=== PATIENT | female | born 1950 | race Hispanic/Latino ===

== ENCOUNTER → 2018-07-11 | Outpatient (CLI) | payer MEDICARE ==
[~2018-07-11] MED LIST: ALLEGRA ALLERG180 MG PO; ANASTROZOLE1 MG PO; ASPIR 8181 MG PO; ATORVASTATIN CA20 MG PO; CALCIUM CARBON500 MG PO; DOXEPIN HCL25 MG PO; METFORMIN HCL500 M2 PO
--- NOTE | 2018-07-11 09:56 | Diagnostic Imaging Report ---
PROCEDURE:HAND THREE VIEWS BILATERAL INDICATION:Hand pain times several months COMPARISON:None. FINDINGS: Right hand: no acute, displaced fracture or dislocation. Appropriate alignment between the distal radius, lunate, and capitate is maintained on the lateral radiograph. Joint spaces are well-maintained. Soft tissues are unremarkable. Contour irregularity along the subungual tuft of the third distal phalanx may relate to prior trauma. Left hand: No acute, displaced fracture or dislocation. Appropriate alignment between the distal radius, lunate, and capitate is maintained on the lateral radiograph. Joint spaces are well-maintained. Soft tissues are unremarkable. CONCLUSION: No acute osseous abnormalities. Dictated by: Casey Mena M.D. on 07/11/2018 at 10:06 Electronically approved by: Casey Mena M.D. on 07/11/2018 at 10:06
== END ==
LOC: RAD 09:08
PROVIDERS: ATTEND Internal Medicine Rheumatology
DX: M25.542 Pain in joints of left hand (principal); M25.541 Pain in joints of right hand; M13.842 Other specified arthritis, left hand; M13.841 Other specified arthritis, right hand

== ENCOUNTER → 2018-09-26 | Outpatient (CLI) | payer OTHER ==
--- NOTE | 2018-09-26 16:06 | Diagnostic Imaging Report ---
EXAM: BONE MINERAL DENSITY HISTORY: Bone mineralization evaluation COMPARISON: None DISCUSSION: Evaluation of the left hip and lumbar spine was performed utilizing DEXA Hologic bone densitometer. The study is technically adequate. Left hip femoral neck bone mineral density: 0.62 g/cm2, T-score is -2.1, Z-score is -0.6. Left hip total bone mineral density: 0.78 g/cm2, T-score is -1.3, Z-score is -0.2. Bone mineralization increased by 4.5%. Lumbar spine total bone mineral density: 0.79 gm/cm2, T-score is -2.3, Z-score is -0.4. Bone mineralization increased by 2%. Impression: Bone mineralization by WHO Classification is low bone mass/osteopenia, the fracture risk is increased. Signed by: Dr. Anthony Ball M.D. on 09/26/2018 4:02 PM
== END ==
LOC: MAMMO 09:33
PROVIDERS: ATTEND Family Medicine
DX: M81.0 Age-related osteoporosis without current pathological fracture (principal)
CPT/HCPCS: 77080

== ENCOUNTER → 2020-12-07 | Outpatient (CLI) | payer MEDICARE | LOC: DX 09:35 | PROVIDERS: ATTEND Family Medicine | DX: Z13.820 Encounter for screening for osteoporosis (principal) | CPT/HCPCS: 77080 ==

== ENCOUNTER → 2021-09-19 | Day surgery (SDC) | payer MEDICARE ==
[2021-09-16 08:34] LABS: BASOPHILS % 0.3 % (0.0-1.0); EOSINOPHILS # (AUTO) 0.3 (0.0-0.4); EOSINOPHILS % 3.4 % (0.0-6.0); HEMATOCRIT 41.8 % (34.2-44.1); HEMOGLOBIN 13.1 g/dL (12.0-16.0); LYMPHOCYTES # (AUTO) 2.6 (1.0-3.2); LYMPHOCYTES % 33.6 % (18.0-39.1); MEAN CORPUSCULAR HEMOGLOBIN 27.8 pg (28-32); MEAN CORPUSCULAR HGB CONC 31.3 g/dL (31-35); MEAN CORPUSCULAR VOLUME 88.6 fL (81-99); MONOCYTES # (AUTO) 0.6 (0.2-0.8); MONOCYTES % 7.9 % (4.4-11.3); NEUTROPHILS # (AUTO) 4.2 (2.1-6.9); NEUTROPHILS % 54.5 % (38.7-80.0); PLATELET COUNT 247 x10e3/uL (140-360); RED BLOOD COUNT 4.72 x10e6/uL (3.6-5.1); RED CELL DISTRIBUTION WIDTH 13.2 % (11.7-14.4)
[~2021-09-19] MED LIST changes: +FENTANYL CITRATE/PF 100MCG/2 ML INJ ONE; +LIDOCAINE HCL 2% LOCAL INJ 5 ML SDV VIAL INJ ONE; +METOCLOPRAMIDE HCL 10 MG/2ML VIAL ONE; +MIDAZOLAM HCL 2 MG/2 ML VIAL ONE; +ONDANSETRON HCL INJ 2MG/ML 2ML 2 MG/ML VIAL ONE; +POVIDONE IODINE 0.05% 0.05 % ML PO ONE; +PRECOSE25 MG PO; +PROPOFOL IV EMULSION 10 MG/ML 20 ML VIAL ONE
[2021-09-19 12:06] VITALS: BP 151/93
== END | disposition home or self-care (01) ==
LOC: OR 08:23
PROVIDERS: ATTEND Internal Medicine Gastroenterology
DX: K59.09 Other constipation (principal); K63.5 Polyp of colon; K62.5 Hemorrhage of anus and rectum; K57.30 Diverticulosis of large intestine without perforation or abscess without bleeding; K64.8 Other hemorrhoids; Z71.3 Dietary counseling and surveillance; R73.03 Prediabetes; E78.00 Pure hypercholesterolemia, unspecified; Z01.810 Encounter for preprocedural cardiovascular examination; Z01.812 Encounter for preprocedural laboratory examination; Z20.822 Contact with and (suspected) exposure to COVID-19; Z79.84 Long term (current) use of oral hypoglycemic drugs; Z79.899 Other long term (current) drug therapy; Z68.30 Body mass index [BMI] 30.0-30.9, adult; Z85.3 Personal history of malignant neoplasm of breast
CPT/HCPCS: 36415 ×2; 45380; 82948; 85025; 93005; J2001; J2250; J2405; J2704; J2765; J3010; U0002; 45378

== ENCOUNTER → 2022-09-25 | Outpatient (CLI) | payer MEDICARE ==
[~2022-09-25] MED LIST changes: -FENTANYL CITRATE/PF 100MCG/2 ML INJ ONE; -LIDOCAINE HCL 2% LOCAL INJ 5 ML SDV VIAL INJ ONE; -METOCLOPRAMIDE HCL 10 MG/2ML VIAL ONE; -MIDAZOLAM HCL 2 MG/2 ML VIAL ONE; -ONDANSETRON HCL INJ 2MG/ML 2ML 2 MG/ML VIAL ONE; -POVIDONE IODINE 0.05% 0.05 % ML PO ONE; -PROPOFOL IV EMULSION 10 MG/ML 20 ML VIAL ONE
== END ==
LOC: MRI 07:55
PROVIDERS: ATTEND Family Medicine
DX: C50.911 Malignant neoplasm of unspecified site of right female breast (principal); R51.9 Headache, unspecified; R42 Dizziness and giddiness
CPT/HCPCS: 70551

== ENCOUNTER → 2024-04-25 | Outpatient (REF) | payer MEDICARE | LOC: DX 08:54 | PROVIDERS: ATTEND Family Medicine | DX: M81.0 Age-related osteoporosis without current pathological fracture (principal) | CPT/HCPCS: 77080 ==